=== PATIENT | female | born 1995 | race Two or more races ===

== ENCOUNTER 2022-07-29 17:09 | Emergency (ER) | payer OTHER ==
[~2022-07-29] VITALS: Ht 167.6 cm; Wt 110.2 kg
[2022-07-29] MEDS ORDERED: LEVOTHYROXINE88 MCG PO (17:18)
== END 2022-07-29 20:44 | disposition home or self-care (01) ==
LOC: ER 17:09
DX: O03.4 Incomplete spontaneous abortion without complication (principal); E03.9 Hypothyroidism, unspecified